=== PATIENT | female | born 2000 | race Caucasian/White ===

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

== ENCOUNTER 2022-04-11 08:48 | Inpatient (IN) | payer OTHER ==
[~2022-04-11] VITALS: Ht 162.6 cm; Wt 85.9 kg
[2022-04-11] VITALS (10 sets, daily range): BP systolic 113–135; BP diastolic 56–87
[2022-04-11] MEDS ORDERED: LACTATED RINGER'S 1000 ML IV STA (09:07)
[2022-04-11] MEDS ORDERED: TRANEXAMIC ACID INJection 1,000 MG in NS 100 ML IV PRN (09:10)
[2022-04-11] MEDS ORDERED: OXYTOCIN DRIP 30 UNITS in IV 1 EA IV PRN (09:10)
[2022-04-11] MEDS ORDERED: CARBOPROST TROMETHAMINE 250 MCG/ML AMP IM PRN (09:10)
[2022-04-11] MEDS ORDERED: METHYLERGONOVINE MALEATE 0.2 MG/ML VIAL (J2210) IM PRN (09:10)
[2022-04-11] MEDS ORDERED: LIDOCAINE 1% MDV 20ML VIAL INFIL PRN (09:10)
[2022-04-11] MEDS ORDERED: OXYTOCIN 30 UNITS IN 0.9% NaCl 500ML IV BAG (J2590) As Ordered ONE (09:15)
[2022-04-11 09:21] LABS: HEMATOCRIT 32.8 % (36.0-47.0); MEAN CORPUSCULAR HEMOGLOBIN 30.8 pg (27.0-33.0); MEAN CORPUSCULAR HGB CONC 33.5 g/dl (32.0-36.5); MEAN CORPUSCULAR VOLUME 91.9 fl (80.0-96.0); PLATELET COUNT, AUTOMATED 288 10^3/uL (150-450); RED BLOOD COUNT 3.57 10^6/uL (4.00-5.40); WHITE BLOOD COUNT 10.8 10^3/uL (4.0-10.0)
[2022-04-11] MEDS ORDERED: LR 1,000 ML IV SCH (09:30)
[2022-04-11 09:56] LABS: CORD GAS ABE A -8.4; CORD GAS HCO3 A 17.9 MEQ/L; CORD GAS O2 SAT A 47.8 %; CORD GAS PCO2 A 39.6 mmHg; CORD GAS PH A 7.273 UNITS; CORD GAS PO2 A 21.5 mmHg; CORD GAS SBC A 16.8 MEQ/L; CORD GAS TCO2 A 19.1 MEQ/L
[2022-04-11 09:58] LABS: CORD GAS O2 SAT V 92.2 %; CORD GAS PCO2 V 33.3 mmHg; CORD GAS PH V 7.397 UNITS; CORD GAS PO2 V 50.1 mmHg; CORD GAS SBC V 21.1 MEQ/L
[2022-04-11] MEDS ORDERED: OXYTOCIN DRIP 30 UNITS in IV 1 EA IV SCH (10:00)
[2022-04-11] MEDS ORDERED: IBUPROFEN 600MG TAB PO PRN (10:00)
[2022-04-11] MEDS ORDERED: DOCUSATE SODIUM 100MG CAPSULE PO PRN (10:00)
[2022-04-11] MEDS ORDERED: ACETAMINOPHEN TAB 650MG DOSE (2X325MG) PO PRN (10:00)
[2022-04-11] MEDS ORDERED: MOM 30ML SUSPENSION UDC PO PRN (10:00)
[2022-04-11] MEDS ORDERED: METHYLERGONOVINE MALEATE 0.2 MG TAB PO PRN (10:00)
[2022-04-11] MEDS ORDERED: DIBUCAINE 1% OINTMENT 30GM TOP PRN (10:00)
[2022-04-11] MEDS ORDERED: RHOGAM 300 MCG (1500 IU) INJ (J2790) IM SCH (10:00)
[2022-04-11] MEDS ORDERED: HOME MED LIST COMPLETE! XX SCH (10:45)
[2022-04-11] MEDS: ACETAMINOPHEN 500 MG TAB PO PRN (10:46)
[2022-04-11 11:40] LABS: HIV 1&2 SCREEN CENTAUR NEGATIVE (NEGATIVE)
[2022-04-11 14:17] LABS: AMPHETAMINES URINE REFLEX NEGATIVE (NEGATIVE); BARBITURATES URINE REFLEX NEGATIVE (NEGATIVE); BENZODIAZEPINES URINE REFLEX NEGATIVE (NEGATIVE); COCAINE METABOLITE URINE REFLE NEGATIVE (NEGATIVE); METHADONE URINE REFLEX NEGATIVE (NEGATIVE); OPIATES URINE REFLEX NEGATIVE (NEGATIVE); PHENCYCLIDINE URINE REFLEX NEGATIVE (NEGATIVE)
[2022-04-11 14:22] LABS: CANNABINOIDS URINE REFLEX PENDING CONFIRMATION (NEGATIVE)
[2022-04-11] MEDS: IBUPROFEN 800 MG TAB PO PRN (15:55)
[2022-04-12] MEDS: IBUPROFEN 800 MG TAB PO PRN ×3 (03:55→21:18)
[2022-04-12 06:00] VITALS: BP 115/54
[2022-04-12] MEDS: PRENATAL VITAMINS CHEWABLE TABLET PO SCH (08:00)
[2022-04-12] MEDS: ACETAMINOPHEN 500 MG TAB PO PRN (08:07)
[2022-04-12] MEDS ORDERED: BOOSTRIX/ADACEL VACCINE (DIPHTH/PERTUSS/ACELL/TETANUS) 0.5ML SYR IM.IMMUN ONE (09:00)
[2022-04-12 18:00] VITALS: BP 123/68
[2022-04-13 06:00] VITALS: BP 101/55
[2022-04-13] MEDS ORDERED: MEASLES,MUMPS,RUBELLA VACCINE INJ (MMR-II) (90707) SC.IMMUN ONE (09:00)
[2022-04-13] MEDS: ACETAMINOPHEN 500 MG TAB PO PRN (09:29)
[2022-04-13] MEDS: PRENATAL VITAMINS CHEWABLE TABLET PO SCH (09:30)
[2022-04-13] MEDS ORDERED: ACET-683 PO (11:22)
[2022-04-13] MEDS ORDERED: IBUP80TA PO (11:22)
[2022-04-19 09:07] LABS: Cannabinoid Positive (.); Carboxy THC Conf, MS, UR 90 ng/mL (Cutoff=10)
== END 2022-04-13 12:05 | disposition home or self-care (01) | DRG 560 ==
LOC: M LDI 08:48 → M OBS 12:33
PROVIDERS: ADMIT Obstetrics & Gynecology; ATTEND Obstetrics & Gynecology
PROC: 10E0XZZ Delivery of Products of Conception, External Approach (ICD-10-PCS; principal; 2022-04-11)
DX: O69.1XX0 Labor and delivery complicated by cord around neck, with compression, not applicable or unspecified (principal); Z3A.36 36 weeks gestation of pregnancy; Z37.0 Single live birth